=== PATIENT | male | born 1990 | race African-American/Black ===

== ENCOUNTER 2017-08-23 21:33 | Emergency (ER) | payer OTHER ==
[~2017-08-23] VITALS: Ht 177.8 cm; Wt 90.7 kg
[2017-08-23 21:43] VITALS: Ht 177.8 cm; Wt 90.7 kg
[2017-08-23 23:18] VITALS: BP 144/75
== END 2017-08-23 23:18 | disposition other institution (70) ==
LOC: ED 21:33
DX: F12.10 Cannabis abuse, uncomplicated (principal); F10.129 Alcohol abuse with intoxication, unspecified
CPT/HCPCS: G0480

== ENCOUNTER 2017-08-23 21:33 | Emergency (ER) | payer OTHER | END 2017-08-23 23:18 | disposition other institution (70) | LOC: ED 21:33 | DX: Z53.21 Procedure and treatment not carried out due to patient leaving prior to being seen by health care provider (principal) ==